=== PATIENT | male | born 1965 | race Caucasian/White ===

== ENCOUNTER 2021-07-14 22:18 | Emergency (ER) | payer MEDICAID ==
[2021-07-14] MEDS ORDERED: Sodium Chloride 0.9% 10 ML Syringe FLUSH PRN (22:51)
[2021-07-14] MEDS ORDERED: Sodium Chloride 0.9% 500 ML IV ONE (23:15)
[2021-07-14] MEDS ORDERED: Meclizine 25 MG Tab PO ONE (23:50)
[2021-07-15 00:10] LABS: CORONAVIRUS COVID-19 NAA NEGATIVE (NEGATIVE)
== END 2021-07-15 02:10 | disposition home or self-care (01) ==
LOC: FB.ED 22:18
DX: R42 Dizziness and giddiness (principal); E66.9 Obesity, unspecified; Z68.32 Body mass index [BMI] 32.0-32.9, adult; Z20.822 Contact with and (suspected) exposure to COVID-19
CPT/HCPCS: 0240U; 36415; 70450; 71046; 80053; 81001; 83735; 85025; 86140; 93005; 93010; 99282; 99284-25; A9270-GY; J3360; J3490; J7040